=== PATIENT | male | born 1985 | race African-American/Black ===

== ENCOUNTER 2018-04-01 08:12 | Day surgery (SDC) | payer OTHER ==
[2018-04-01] MEDS ORDERED: HYDROmorphONE 1 MG/5 ML IV SYRINGE IV ×3 (10:30)
[2018-04-01] MEDS ORDERED: ONDANSETRON 4 MG INJ IV (10:30)
[2018-04-01] MEDS ORDERED: MEPERIDINE 25 MG INJ IV (10:30)
[2018-04-01] MEDS ORDERED: FENTAnyl 50 MCG/ML VIAL IV ×3 (10:30)
[2018-04-01] MEDS ORDERED: PROCHLORPERAZINE 10 MG INJ IV (10:30)
[2018-04-01] MEDS ORDERED: DIPHENHYDRAMINE 50 MG INJ IV (10:30)
[2018-04-01] MEDS ORDERED: PROPOFOL 20 ML ×2 (10:38→10:47)
[2018-04-01] MEDS ORDERED: MIDAZOLAM 1 MG/ML 2 ML INJ (10:38)
[2018-04-01] MEDS ORDERED: FENTAnyl 50 MCG/ML VIAL (10:38)
[2018-04-01] MEDS ORDERED: LIDOCAINE 2% (SDV) 5 ML INJ (10:38)
[2018-04-01] MEDS ORDERED: CEFAZOLIN 1 GM INJ (10:47)
[2018-04-01] MEDS ORDERED: DEXAMETHASONE 4 MG/ML 5 ML INJ (10:53)
[2018-04-01] MEDS ORDERED: ONDANSETRON 4 MG INJ (10:53)
[2018-04-01] MEDS ORDERED: FAMOTIDINE 20 MG INJ (10:53)
[2018-04-01] MEDS ORDERED: GLYCOPYRROLATE 0.4 MG INJ (11:26)
[2018-04-01] MEDS: TRIAMCINOLONE ACET 40 MG/ML INJ (11:36)
[2018-04-01] MEDS: LIDOCAINE 1% (MPF) 30 ML INJ (11:36)
[2018-04-01] MEDS: OXYCODONE/ACETAMINOPHEN (5/325) TAB PO (12:23)
== END 2018-04-01 13:18 | disposition home or self-care (01) ==
LOC: SDS 08:12
DX: S83.241A Other tear of medial meniscus, current injury, right knee, initial encounter (principal); S83.281A Other tear of lateral meniscus, current injury, right knee, initial encounter; M94.261 Chondromalacia, right knee; M25.561 Pain in right knee; X58.XXXA Exposure to other specified factors, initial encounter; Y93.89 Activity, other specified; Y92.89 Other specified places as the place of occurrence of the external cause; Y99.8 Other external cause status
CPT/HCPCS: 29880